=== PATIENT | female | born 1960 | race Hispanic/Latino ===

== ENCOUNTER 2019-03-13 08:53 | Outpatient (CLI) | payer OTHER, MEDICARE ==
--- NOTE | 2019-03-13 09:53 | MRI ---
Brain MRI without contrast: 03/13/2019 COMPARISON: 12/15/2009 HISTORY: Memory loss TECHNIQUE: Multiplanar multisequence MR imaging of the brain obtained without contrast FINDINGS: The diffusion weighted imaging demonstrates no evidence for acute infarction. The axial gradient echo imaging demonstrates no evidence for intracranial hemorrhage. There is no midline shift or mass effect. No ventricular enlargement is noted. There is a linear area of increased T2 and FLAIR signal within the periventricular white matter adjac ent to the frontal horn of the right lateral ventricle which may represent a prior shunt tract. No significant white matter disease is seen otherwise. Regional bone marrow signal intensity appears within normal limits. The paranasal sinuses/mastoid air cells demonstrate normal signal intensity. Arterial flow voids at t he axial level of the skull base appear grossly unremarkable on the T2-weighted imaging. Impression: No acute findings.
== END 2019-03-13 08:54 | disposition home or self-care (01) ==
LOC: SCSMRI 08:53
PROVIDERS: ATTEND Family Medicine
DX: R41.3 Other amnesia (principal); I72.8 Aneurysm of other specified arteries
CPT/HCPCS: 70551